=== PATIENT | female | born 1980 | race Caucasian/White ===

== ENCOUNTER 2020-09-11 08:55 | Emergency (ER) | payer OTHER, SELFPAY ==
[2020-09-11 09:08] VITALS: BP 119/77; PULSE 70; RESP 18; TEMP 36.8; O2SAT 98; BMI 34.6
[2020-09-11 09:15] VITALS: BP 121/68; PULSE 75; RESP 18; O2SAT 98
--- NOTE | 2020-09-11 09:22 | PC.NURSE ---
Patient reports that she was at work and had cut her second finger on a can. Bleeding is controlled at this time. Reports not up to date on tetanus.
--- NOTE | 2020-09-11 09:36 | W.ED.EXTPRO ---
HPI - Extremity Problem General: Chief complaint: Extremity Injury, Upper Stated complaint: L hand LAC Time Seen by Provider: 09/11/20 09:04 History of Present Illness: HPI Narrative: Patient cut left index finger while opening a large tin can today at work. Complaint: other (Laceration left index finger) Onset (ago): minute(s) Location: left and upper extremity Severity scale (1-10): 1 Associated symptoms: Reports no associated symptoms; Deny fever(s) Review of Systems Const: Denies: fever(s) or chills Skin/Breast: Reports: other (Laceration left index finger cut on a tin can today) Psych: Denies: anxiety Physical Exam Const: COMMON NORMALS: no acute distress Psych: COMMON NORMALS: mental status grossly normal Skin: OTHER: Patient is approximately 2 inch laceration to left index finger extended base of nail on the dorsal surface of to the palmar side in a curved fashion. No active bleeding superficial in depth. Area was cleaned Dermabond was applied Coban dressing was put on. Procedures Laceration Laceration 1: Site: hand Side (If applicable): left Size (cm): 4 Description: flap and clean Depth: simple, single layer Pre-repair: wound explored Skin layer closed with: other (Skin adhesive) Course Vital Signs: Vital signs: Vital Signs Temperature 98.3 F 09/11/20 09:08 Pulse Rate 75 09/11/20 09:15 Respiratory Rate 18 09/11/20 09:15 Blood Pressure 121/68 09/11/20 09:15 Pulse Oximetry 98 09/11/20 09:15 Discharge Plan Discharge Patient Disposition: Home Clinical Impression: Finger laceration Qualifiers: Encounter type: initial encounter Finger: index finger Damage to nail status: without damage Foreign body presence: without foreign body Laterality: left Qualified Code(s): S61.211A - Laceration without foreign body of left index finger without damage to nail, initial encounter Condition: Stable Discharge Orders: Discharge ED (Routine); Ordered 09/11/20 Ordered By: William Cyr Referrals: [facility] [Other] Discharge Diet: Usual diet Discharge Activity: Limit activity as instructed Patient Instructions: Skin Adhesive Care (ED) Activity Restrictions/Additional Instructions: Keep dressing on for 24 hours. Then change dressing daily after that. Watch for signs and symptoms of infection which would include redness swelling worsening pain. Follow-up work comp provider as needed. Coding Level of Care Code ED Critical Care Unit Nurse for Noa Ramos
[2020-09-11] MEDS: tetanus-diphtheria tox (adult) 0.5 mL SDV IM (09:41)
[2020-09-11 09:42] VITALS: BP 121/81; PULSE 74; RESP 16; O2SAT 97
[2020-09-11 09:46] VITALS: BP 113/66; PULSE 76; RESP 18; O2SAT 97
== END 2020-09-11 09:48 | disposition home or self-care (01) ==
PROVIDERS: Emergency Provider Nurse Practitioner Family
DX: S61.211A Laceration without foreign body of left index finger without damage to nail, initial encounter (principal); W26.8XXA Contact with other sharp object(s), not elsewhere classified, initial encounter; Z23 Encounter for immunization
CPT/HCPCS: 12002; 90471; 90714; 99282

== ENCOUNTER 2022-01-08 14:46 | Outpatient (CLI) | payer OTHER, SELFPAY ==
--- NOTE | 2022-01-08 14:51 | MM_ITS ---
WS: [id number] BILATERAL 3D TOMOSYNTHESIS DIGITAL SCREENING MAMMOGRAPHY WITH CAD CLINICAL INFORMATION: SCREEN HISTORY: Screening mammogram. No current complaints. COMPARISON: None. TECHNIQUE: Bilateral CC and MLO views. FINDINGS: Scattered fibroglandular densities bilaterally. No suspicious focal mass, asymmetry, calcifications, or architectural distortion. No evidence of malignancy. MM/[place] [id number] IMPRESSION: BI-RADS: 1-Negative FOLLOW UP: 1 Year Follow-up Recommend return to annual screening mammography.
== END 2022-01-08 14:47 | disposition home or self-care (01) ==
LOC: RAD 14:47
PROVIDERS: Visit Provider Nurse Practitioner Family
DX: Z12.31 Encounter for screening mammogram for malignant neoplasm of breast (principal)
CPT/HCPCS: 77063; 77067

== ENCOUNTER → 2022-05-27 21:33 | Outpatient (BNVA) | payer OTHER, SELFPAY | PROVIDERS: PCP Nurse Practitioner Family; Visit Provider Nurse Practitioner | DX: Z12.4 Encounter for screening for malignant neoplasm of cervix (principal) | CPT/HCPCS: 88175 ==

== ENCOUNTER 2022-06-16 06:32 | Outpatient (CLI) | payer OTHER, SELFPAY ==
--- NOTE | 2022-06-16 07:00 | US_ITS ---
WS: [id number] US pelv w/transvag [id number] HISTORY: N92.0 - Excessive and frequent menstruation COMPARISON: None available. Uterus: 9.8 cm x 5.5 cm x 4.8 cm. Normal size anteverted uterus. No fibroid or mass. Endometrium: 1.2 cm. Normal endometrium. There are a few small nabothian cyst towards the cervix. Right ovary: 3.4 cm x 3.5 cm x 1.6 cm. Normal size and vascularity, no cystic or solid masses. Left ovary: 2.6 cm x 3.4 cm x 2.1 cm. Normal size and vascularity, no cystic or solid masses. No free fluid in the cul-de-sac. US/US pelv w/transvag [id number] IMPRESSION: 1. Normal endometrium. No mass identified. Normal vascularity. 2. Normal uterus.
== END 2022-06-16 06:33 | disposition home or self-care (01) ==
LOC: RAD 06:35
PROVIDERS: PCP Nurse Practitioner Family; Visit Provider Nurse Practitioner
DX: N92.0 Excessive and frequent menstruation with regular cycle (principal)
CPT/HCPCS: 76830; 76856

== ENCOUNTER 2022-08-26 09:23 | Day surgery (SDC) | payer OTHER, SELFPAY ==
[2022-08-25 12:14] VITALS: BMI 33.3
[2022-08-26] VITALS (15 sets, daily range): BP systolic 111–133; BP diastolic 62–90; PULSE 58–70; RESP 16–20; TEMP 36.1–36.8; O2SAT 93–98
--- NOTE | 2022-08-26 10:20 | W.PM.OPSUD ---
Surgery/Procedure H&P Update DATE OF PROCEDURE: August 26, 2022 DATE H&P PERFORMED: 07/23/22 H&P UPDATE INFORMATION: I have reviewed H&P completed within last 30 days, I have examined patient prior to procedure and No changes to prior documentation PREOP DIAGNOSIS: desires permanent sterilization PRIMARY INDICATION FOR PROCEDURE: desires permanent sterilization abnormal uterine bleeding PLANNED PROCEDURE: Operation Date: 08/26/22 11:00 Proposed Procedures p Laparoscopic Partial Salpingectomy(Bilateral) - Miles Haywood MD s Hysteroscopy,endometrial sampling,Possible endometrial polypectomy, Ablation:,[id number],65015,n92.0(Bilateral) - Miles Haywood MD
[2022-08-26] MEDS: sodium chloride 0.9% 1,000 ML 30 ML IV (10:22)
[2022-08-26 10:23] LABS: Glucose Point of Care 141 mg/dL (70-110)
[2022-08-26 10:38] LABS: OR HCG Qualitative Urine Negative (Negative)
--- NOTE | 2022-08-26 10:49 | ANES.PREANE2 ---
Pre-Anesthetic Assessment Height/Weight: Height 1.65 m Weight 90.718 kg Temp Pulse Resp BP Pulse Ox O2 Del Method 97.4 F L 70 16 125/83 97 Room Air 08/26/22 09:53 08/26/22 09:53 08/26/22 09:53 08/26/22 09:53 08/26/22 09:53 08/26/22 09:55 Preop Diagnosis: desires permanent sterilization Operation Date: 08/26/22 11:00 Proposed Procedures p Laparoscopic Partial Salpingectomy(Bilateral) - Miles Haywood MD s Hysteroscopy,endometrial sampling,Possible endometrial polypectomy, Ablation:,[id number],[id number],77499,88216,n92.0(Bilateral) - Miles Haywood MD Familial anesthetic complications: none Was Beta Dominic taken within 24 hours: Yes Was Clonidine taken within 24 hours: N/A Last intake: Intake Last Liquid Date 08/25/22 Last Liquid Time 19:30 Last Solid Date 08/25/22 Last Solid Time 19:30 Social No alcohol and No tobacco Exam alert, oriented x 3, clear to auscultation bilaterally and regular rate & rhythm Airway Submandibular: within normal limits Cervical ROM: within normal limits Mallampati: Class II Dentition: chipped CV/HEM Hypertension Metabolic Diabetes Mellitus, Hyperlipidemia and Morbid Obesity Anesthetic Plan ASA status: 3 Anesthesia: General Medications/Allergies Home Medications Medication Instructions Recorded Confirmed Last Taken Type canagliflozin 300 mg tablet 300 mg PO DAILY 05/27/22 08/25/22 08/25/22 08:00 History (Invokana) lisinopril 10 mg tablet 10 mg PO DAILY 05/27/22 08/25/22 08/25/22 History lovastatin 20 mg tablet 20 mg PO DAILY 05/27/22 08/25/22 08/24/22 History metformin 1,000 mg tablet 1,000 mg PO BID 05/27/22 08/25/22 08/25/22 08:00 History multivitamin (Multiple Vitamins 1 tab PO DAILY 05/27/22 08/25/22 08/25/22 History tablet) propranolol 20 mg tablet 20 mg PO DAILY 05/27/22 08/25/22 08/26/22 07:00 History Allergies Allergy/AdvReac Type Severity Reaction Status Date / Time No Known Allergies Allergy Verified 07/23/22 14:26 Current Medications Generic Name Dose Route Start Last Admin Trade Name Yanely PRN Reason Stop Dose Admin Sodium Chloride 1,000 mls @ 30 mls/hr 08/26/22 09:45 08/26/22 10:22 Sodium Chloride 0.9% IV 08/27/22 09:44 30 mls/hr .Q24H ALLA Administration PFSH Anesthesia Medical History Diabetes mellitus with hyperglycemia Essential hypertension PCOS (polycystic ovarian syndrome) Surgical History History of History of carpal tunnel surgery both wrist Family History Father Diabetes Hypertension Mother Stroke Grandmother Cancer Denies family history of CAD (coronary artery disease) Dementia Chronic kidney disease (CKD) Social History Smoking and tobacco status: former smoker Second hand smoke exposure: No Smoking risk assessment/counseling performed?: No Alcohol intake: former Desire information about alcohol rehabilitation?: No Counseling given: No Substance/Drug Use: unknown Desire information about substance/drug rehabilitation?: No Counseling given: No Adopted: No Caregiver/support person: No Lives independently: Yes Household members: spouse Housing: House Marital status: Number of children: 1 service: No Current occupational status: employed Current occupation: [employer] Pets and animals: Yes Do you think of yourself as: Straight/Heterosexual Current gender identity: Female Female Reproductive History Para: 1 Data Anesthesia Cardiac Studies: No Data to Display
[2022-08-26] MEDS: ketorolac 30 mg/mL INJ 15 MG IVP (14:11)
--- NOTE | 2022-08-26 14:15 | SUR.PHASEII ---
PT REVIEWED WITH DR ROMERO, MEDICATED FOR PAIN.
--- NOTE | 2022-08-26 16:27 | ANE.PACU2 ---
Inpatient post-anesthesia follow up: Airway intact: Yes Vital signs: Temperature 97.8 F Pulse Rate 62 Respiratory Rate 16 Blood Pressure 111/69 Pulse Oximetry 96 Oxygen Delivery Me thod Room Air Oxygen Flow Rate 2 Fraction of Inspir ed Oxygen Hydration adequate: Yes Nausea and vomiting: No Pain level: 3 Mental status: Baseline
--- NOTE | 2022-08-27 11:43 | P.OP_ITS ---
Operative Report Date of procedure: August 26, 2022 Pre-op diagnosis: Preop Diagnosis desires permanent sterilization abnormal uterine bleeding Post-op diagnosis: same Post-op findings: normal uterus, tubes, and ovaries Normal endometrial cavity No endometrial polyps or fibroids Minimal endometrial tissue Procedure done: laparoscopic bilateral partial salpingectomy hysteroscopy curettage of uterus endometrial ablation with Novasure device Specimens removed/disposition: bilateral partial fallopian tubes endometrial curettings Surgeon: Miles Haywood MD Anesthesia: General Estimated blood loss (mL): 5 Complications: none Brief History: 42 y.o. desired permanent sterilization and with history of abnormal uterine bleeding Procedure: Informed consent was obtained. The patient was taken to the OR and placed on the table. General endotracheal anesthesia was induced. The patient was then placed in dorsolithotomy position. The abdomen and perineum were then prepped and draped in the usual fashion. A Dee catheter was placed. A 5 mm subumbilical skin incision was made. A Veress needle was inserted. Due to patient?s adiposity, insufflation was not successful via the subumbilical approach. A left upper quadrant 2 mm incision was made. A Veress needle was inserted into the abdominal cavity. Pneumoperitoneum was achieved. The Veress needle was removed. A 5 mm trocar with sheath was then inserted into the peritoneal cavity under direct visualization with the laparoscope via the subumbilical incision. After confirming intraperitoneal position, two separate 5 mm incisions were made in the right and left mid-quadrants. 5 mm trocars with sheaths were then inserted into the peritoneal cavity under direct visualization with the laparoscope. The uterus, tubes and ovaries were seen to be normal, as was the remainder of the pelvic cavity. The right fallopian tube was then identified to its fimbrial end. Starting at the fimbrial end, the mesosalpinx was then coagulated and cut using the Endoseal. A 3-4 cm portion of the right fallopian tube was excised and removed via one of the ports. This was sent to pathology. There was no bleeding seen. Similarly, the left fallopian tube was identified to its fimbrial end. A 3-4 cm portion of the left fallopian tube was excised and removed, sent to pathology. There was no bleeding. All instruments were then removed from the peritoneal cavity after the pneumoperitoneum was allowed to escape. The skin incisions were closed using 3- O chromic in subcuticular fashion. Dermabond was applied. Following this, a speculum was placed in the vagina. The anterior lip of the cervix was grasped with a sharp-toothed tenaculum. The uterus was sounded to 8 cm. The cervix was serially dilated with Hegar dilators. . A hysteroscope was placed into the endometrial cavity. The endometrial cavity was seen to be normal. There were no polyps or fibroids. There was minimal endometrial tissue. The hysteroscope was then removed. Endometrial curettage was done with a sharp curette. Endometrial tissue was sent to pathology. The Novasure device was then primed and inserted into the endometrial cavity. The cervical occlusion sleeve was advanced. Cavity integrity test was done. The device was activated for 40 seconds. The Novasure device was then removed. The sharp-toothed tenaculum was removed. There was no bleeding from the endometrial cavity or cervix. The patient was then placed supine and awakened and taken to the PACU. Postop condition: stable EBL: 5 cc Sponge and instruments counts were normal x 2 Complications: none
== END 2022-08-26 15:15 | disposition home or self-care (01) ==
PROVIDERS: Anesthesiology; PCP Nurse Practitioner Family; Visit Provider Obstetrics & Gynecology
PROC: (CPT 58661; principal; 2022-08-26 11:00)
PROC: (CPT 58999; 2022-08-26 11:00)
PROC: 0U598ZZ Destruction of Uterus, Via Natural or Artificial Opening Endoscopic (ICD-10-PCS; CPT 58563; 2022-08-26 11:00)
DX: N93.8 Other specified abnormal uterine and vaginal bleeding (principal); E11.9 Type 2 diabetes mellitus without complications; E78.5 Hyperlipidemia, unspecified; I10 Essential (primary) hypertension; E66.01 Morbid (severe) obesity due to excess calories; Z68.33 Body mass index [BMI] 33.0-33.9, adult; Z79.84 Long term (current) use of oral hypoglycemic drugs; Z87.891 Personal history of nicotine dependence
CPT/HCPCS: 58558; 58661; 36416; 81025; 82962; 84703; 88302; 88305; J1100; J1885; J2405; J2704; J2710; J3010; J3490; J7030

== ENCOUNTER 2023-01-21 14:47 | Outpatient (CLI) | payer OTHER, SELFPAY ==
--- NOTE | 2023-01-21 14:51 | MM_ITS ---
WS: [id number] BILATERAL 3D TOMOSYNTHESIS DIGITAL SCREENING MAMMOGRAPHY WITH CAD CLINICAL INFORMATION: SCREENING HISTORY: Screening mammogram. No current complaints. COMPARISON: 01/08/2022 TECHNIQUE: Bilateral CC and MLO views. FINDINGS: The breasts are composed of heterogeneous fibroglandular density tissue, which can limit the detectio n of small underlying mass lesions. No suspicious mass, asymmetry, calcifications, or architectural d istortion. No evidence of malignancy. IMPRESSION: MM/[place] [id number] BI-RADS: 1-Negative FOLLOW UP: 1 Year Follow-up Recommend return to annual screening mammography.
== END 2023-01-21 14:48 | disposition home or self-care (01) ==
LOC: RAD 14:47
PROVIDERS: PCP Nurse Practitioner Family; Visit Provider Nurse Practitioner Family
DX: Z12.31 Encounter for screening mammogram for malignant neoplasm of breast (principal)
CPT/HCPCS: 77063; 77067

== ENCOUNTER → 2023-05-02 15:50 | Outpatient (BNVA) | payer BC, SELFPAY | PROVIDERS: PCP Nurse Practitioner; Visit Provider Nurse Practitioner | DX: E11.65 Type 2 diabetes mellitus with hyperglycemia (principal) | CPT/HCPCS: 81003 ==

== ENCOUNTER → 2023-06-16 08:20 | Outpatient (BNVA) | payer BC, SELFPAY | PROVIDERS: PCP Nurse Practitioner; Visit Provider Nurse Practitioner | DX: E11.9 Type 2 diabetes mellitus without complications (principal) | CPT/HCPCS: 80053; 80061; 82607; 83036 ==

== ENCOUNTER → 2023-09-29 14:19 | Outpatient (BNVA) | payer BC, SELFPAY | PROVIDERS: PCP Nurse Practitioner; Visit Provider Nurse Practitioner | DX: E11.65 Type 2 diabetes mellitus with hyperglycemia (principal) | CPT/HCPCS: 81000; 85025 ==

== ENCOUNTER 2023-10-14 07:16 | Outpatient (CLI) | payer BC, SELFPAY ==
--- NOTE | 2023-10-14 08:00 | US_ITS ---
WS: [id number] ABDOMINAL ULTRASOUND LIMITED REASON FOR VISIT: R10.11 - Right upper quadrant pain TECHNIQUE: Grayscale and Doppler ultrasound examination of the abdomen. FINDINGS: Pancreas: No pancreatic mass identified. No pancreatic ductal dilatation or pancreatic calcification identified. Abdominal aorta and IVC: Normal. Liver: Liver measures 19.5 cm in length. Mild hepatomegaly with slightly increased echogenicity. No f ocal lesion. No intrahepatic bile duct dilatation. Gallbladder: Gallbladder wall thickness measures 0.2 mm. Small gallbladder wall polyp. No definite ga llbladder calculi. Right kidney: Right kidney measures 11.4 cm x 5.7 cm x 4.2 cm. Right kidney cortex measures 1.0 cm. N o renal mass, calculus, or hydronephrosis. No ascites. US/US gall bladder [id number] IMPRESSION: Moderate hepatomegaly with mildly increased echogenicity which is nonspecific b ut most commonly seen with fatty infiltration of the liver. No acute gallbladder findings.
== END 2023-10-14 07:17 | disposition home or self-care (01) ==
LOC: RAD 07:16
PROVIDERS: PCP Nurse Practitioner; Visit Provider Nurse Practitioner
DX: R10.11 Right upper quadrant pain (principal); E11.65 Type 2 diabetes mellitus with hyperglycemia; R16.0 Hepatomegaly, not elsewhere classified; K82.4 Cholesterolosis of gallbladder
CPT/HCPCS: 76705; 81000; 85025

== ENCOUNTER 2024-01-24 14:48 | Outpatient (CLI) | payer BC, SELFPAY ==
--- NOTE | 2024-01-24 14:54 | MM_ITS ---
WS: [id number] VIEWS: MLO and CC views both breasts. 3D digital tomosynthesis is also included in this exam. Comparison made with prior exam of 01/08/2022, 01/21/2023 Findings: The breasts are heterogeneously dense, which may obscure small masses. No suspicious mass, tumor calcification or architectural distortion. MM/MM scr [place] tomosynthesis [id number] Impression: BI-RADS: 2 - Benign FOLLOW-UP: 1 Year Follow-up This mammogram was also analyzed by the Computer Aided Detection System R2 Imag e Bleach Boiler [employer]er.
== END 2024-01-24 14:49 | disposition home or self-care (01) ==
LOC: RAD 14:49
PROVIDERS: PCP Nurse Practitioner; Visit Provider Nurse Practitioner
DX: Z12.31 Encounter for screening mammogram for malignant neoplasm of breast (principal); R92.333 Mammographic heterogeneous density, bilateral breasts
CPT/HCPCS: 77063; 77067

== ENCOUNTER → 2024-02-06 08:17 | Outpatient (BNVA) | payer BC, SELFPAY | PROVIDERS: PCP Nurse Practitioner; Visit Provider Nurse Practitioner | DX: E11.9 Type 2 diabetes mellitus without complications (principal); E11.65 Type 2 diabetes mellitus with hyperglycemia; I10 Essential (primary) hypertension | CPT/HCPCS: 80053; 80061; 83036; 85025 ==

== ENCOUNTER → 2024-05-14 08:08 | Outpatient (BNVA) | payer BC, SELFPAY | PROVIDERS: PCP Nurse Practitioner; Visit Provider Nurse Practitioner | DX: I10 Essential (primary) hypertension (principal); E11.65 Type 2 diabetes mellitus with hyperglycemia; E11.9 Type 2 diabetes mellitus without complications | CPT/HCPCS: 80053; 80061; 83036; 84443; 85025 ==

== ENCOUNTER → 2024-11-14 08:03 | Outpatient (BNVA) | payer BC, SELFPAY | PROVIDERS: PCP Nurse Practitioner; Visit Provider Nurse Practitioner | DX: E11.65 Type 2 diabetes mellitus with hyperglycemia (principal) | CPT/HCPCS: 80053; 80061; 83036; 85025 ==

== ENCOUNTER → 2024-11-15 15:17 | Outpatient (BNVA) | payer BC, SELFPAY | PROVIDERS: PCP Nurse Practitioner; Visit Provider Nurse Practitioner | DX: E11.65 Type 2 diabetes mellitus with hyperglycemia (principal) | CPT/HCPCS: 81000 ==

== ENCOUNTER → 2025-02-04 08:26 | Outpatient (BNVA) | payer BC, SELFPAY | PROVIDERS: PCP Nurse Practitioner; Visit Provider Nurse Practitioner | DX: E11.9 Type 2 diabetes mellitus without complications (principal); E11.65 Type 2 diabetes mellitus with hyperglycemia | CPT/HCPCS: 80053; 80061; 83036; 85025 ==

== ENCOUNTER 2025-02-12 09:49 | Outpatient (CLI) | payer BC, SELFPAY ==
--- NOTE | 2025-02-12 10:00 | MM_ITS ---
WS: [id number] BILATERAL 3D TOMOSYNTHESIS DIGITAL SCREENING MAMMOGRAPHY WITH CAD CLINICAL INFORMATION: Z12.31 - Encounter for screening mammogram for malignant ... HISTORY: Screening mammogram. No current complaints. COMPARISON: 2023 TECHNIQUE: Bilateral CC and MLO views. FINDINGS: The breasts are composed of heterogeneous fibroglandular density tissue, which can limit the detection of small underlying mass lesions. 3 mm asymmetric density lower outer RIGHT breast. This is best seen on the cc view. Recommend further evaluation with RIGHT breast diagnostic mammography and ultrasound if persistent. Unremarkable LEFT breast . MM/MM [facility] tomosynthesis [id number] IMPRESSION: DENSITY: The breasts are heterogeneously dense, which may obscure small masses. BI-RADS: 0 - Incomplete: Need additional imaging evaluation FOLLOW UP: Need Additional Imaging Recommend RIGHT breast diagnostic mammography and ultrasound if persistent.
== END 2025-02-12 09:50 | disposition home or self-care (01) ==
LOC: MOBLMAM 09:51
PROVIDERS: PCP Nurse Practitioner; Visit Provider Nurse Practitioner
DX: Z12.31 Encounter for screening mammogram for malignant neoplasm of breast (principal); R92.323 Mammographic fibroglandular density, bilateral breasts; R92.333 Mammographic heterogeneous density, bilateral breasts; N64.89 Other specified disorders of breast
CPT/HCPCS: 77063; 77067

== ENCOUNTER 2025-02-25 14:03 | Outpatient (CLI) | payer BC, SELFPAY ==
--- NOTE | 2025-02-25 14:22 | MM_ITS ---
WS: [id number] RIGHT 3D TOMOSYNTHESIS DIGITAL MAMMOGRAPHY WITH CAD CLINICAL INFORMATION: R92.8 - Other abnormal and inconclusive findings on diagn... HISTORY: Additional views COMPARISON: 02/12/2025 TECHNIQUE: 3 views of the right breast were obtained. FINDINGS: Scattered fibroglandular densities of the right breast. Again seen is a small 4 mm nodular density lower outer RIGHT breast. Ultrasound described below. ULTRASOUND BREAST RIGHT TECHNIQUE: Ultrasound right breast focused area of concern. CLINICAL INFORMATION: R92.8 - Other abnormal and inconclusive findings on diagn... FINDINGS: Ultrasound lower outer RIGHT breast. No suspicious findings. No cystic or solid lesions. No lesions to target for biopsy. Recommend return to annual screening mammography MM/MM diag [facility] tomosynthesis [id number] IMPRESSION: DENSITY: There are scattered areas of fibroglandular density. BI-RADS: 2 - Benign. FOLLOW UP: 1 Year Follow-up Recommend return to annual screening mammography.
== END 2025-02-25 14:04 | disposition home or self-care (01) ==
LOC: RAD 14:04
PROVIDERS: PCP Nurse Practitioner; Visit Provider Nurse Practitioner
DX: R92.8 Other abnormal and inconclusive findings on diagnostic imaging of breast (principal); N63.13 Unspecified lump in the right breast, lower outer quadrant; R92.323 Mammographic fibroglandular density, bilateral breasts
CPT/HCPCS: 76642; 77061; G0279